=== PATIENT | male | born 1990 | race Hispanic/Latino ===

== ENCOUNTER 2021-11-01 21:50 | Emergency (ER) | payer OTHER ==
[2021-11-01] MEDS ORDERED: traMADol HCl 50 MG TAB ONE ×2 (22:31→22:32)
[2021-11-01] MEDS ORDERED: Cyclobenzaprine 10 MG TAB ONE (22:32)
== END 2021-11-01 23:06 | disposition home or self-care (01) ==
LOC: MADERS 21:50
DX: M51.14 Intervertebral disc disorders with radiculopathy, thoracic region (principal); X50.1XXA Overexertion from prolonged static or awkward postures, initial encounter
CPT/HCPCS: 99283